=== PATIENT | female | born 2000 | race Caucasian/White ===

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

== ENCOUNTER 2020-04-01 18:55 | Emergency (ER) | payer BC, OTHER ==
[~2020-04-01] VITALS: Ht 167.6 cm; Wt 60.0 kg
[2020-04-01 19:15] VITALS: BP 162/79
--- NOTE | 2020-04-01 19:26 | PHYS DOC ---
Past History Past Medical History: Depression Past Surgical History: No Surgical History Smoking: Cigarettes Alcohol Use: None Drug Use: Marijuana Adult General Chief Complaint Chief Complaint: COUGH HPI HPI Patient is an otherwise healthy 19-year-old female who presents with a chief complaint of mild dry cough and chills for the last 5 days. States she came in to be tested for Covid. Denies any recent travel, measured fevers, chest pain, shortness of breath, abdominal pain, nausea, vomiting, diarrhea. States she is otherwise eating and drinking normally. States he is making urine and stool normally for her. Denies any known ill contacts. Review of Systems Review of Systems Review of systems otherwise unremarkable except noted in HPI Physical Exam Physical Exam Constitutional: Well developed, well nourished, no acute distress, non-toxic appearance. [] HENT: Normocephalic, atraumatic, oropharynx moist, no oral exudates, nose normal. [] Eyes: conjunctiva normal, no discharge. [] Neck: Normal range of motion, no tenderness, supple, no stridor. [] Cardiovascular:Heart rate regular rhythm, no murmur [] Lungs & Thorax: Bilateral breath sounds clear to auscultation [] Abdomen: soft, no tenderness, no masses, no pulsatile masses. [] Skin: Warm, dry, no erythema, no rash. [] Back: No tenderness Extremities: No tenderness, no cyanosis, no clubbing, ROM intact, no edema. [] Neurologic: Alert and oriented X 3, normal motor function, normal sensory function, no focal deficits noted. [] Psychologic: Affect normal, judgement normal, mood normal. [] Current Patient Data Vital Signs Vital Signs Date Time Temp Pulse Resp B/P (MAP) Pulse Ox O2 Delivery O2 Flow Rate FiO2 04/01/20 19:15 98.0 90 16 162/79 (106) 98 Room Air EKG EKG [] Radiology/Procedures Radiology/Procedures [] Heart Score Risk Factors: Risk Factors: DM, Current or recent (<one month) smoker, HTN, HLP, family history of CAD, obesity. Risk Scores: Risk Factors: DM, Current or recent (<one month) smoker, HTN, HLP, family history of CAD, obesity. Course & Med Decision Making Course & Med Decision Making Patient is a 19-year-old female who presents with concern for Covid, and wanted to be tested for 5 days of mild dry cough and chills. Vital signs notable for hypertension. Physical exam noted above. Patient swab for Covid. Discussed all findings with patient and advised quarantine over the next few days until her Covid test results. Given close contact quarantine advice as well and education. Advised to follow-up with her primary care physician first thing tomorrow to update on ED visit and quarantine. Advised to come back to the ED with new or concerning symptoms. Patient grateful, verbalized understanding and agreed with plan of discharge. [] Dragon Disclaimer Dragon Disclaimer This electronic medical record was generated, in whole or in part, using a voice recognition dictation system. Departure Departure: Impression: Primary Impression: Cough Additional Impression: Person under investigation for COVID-19 Disposition: 01 DC HOME SELF CARE/HOMELESS Condition: GOOD Referrals: MELANIE WOOD (PCP) Additional Instructions: You have been tested for COVID-19. It is an infection caused by a new type of coronavirus. COVID-19 will cause cold-like or mild flu symptoms in most. It can cause more severe symptoms like problems breathing in some. There is no treatment for COVID-19. The body will clear the infection over time. Self-care will help to ease discomfort. Steps to Take: Self-Care Rest as needed. Healthy habits may help you feel better. Steps include: Choose healthy foods including fruits and vegetables. Drink water throughout the day. Get plenty of sleep each night. If you smoke, try to quit. It may ease breathing. Avoid alcohol. Keep Others Healthy The virus can spread to others. Droplets are released every time you sneeze or cough. The droplets can get into the mouth, nose, or eyes of people near you and lead to infection. To lower the chances of spreading COVID-19 to others: Stay at home until your doctor has said it is safe to leave. If you tested positive this will mean staying isolated until both of the following are true: At least 7 days have passed since the start of illness. You are free of fever for at least 72 hours without the use of medicine. During this time: - Avoid public areas, events, or transportation. Do not return to work or school until your doctor has said it is safe to do so. - Call ahead if you need to go to a medical center. Let them know you may have COVID-19. It will help them guide you where to go. They may also ask you to wear a facemask when you come to the office. - If you call for emergency medical services, let them know you may have COVID- 19. While at home: - Try to avoid close contact with others. Stay about 6 feet away. - If possible, spend most of your time in a separate room from others. - Use a face mask if you will be in close contact with others such as sharing a room or vehicle. - Have someone wipe down common surfaces in the home. Use household store product demonstrator every day on areas like doorknobs, counters, or sinks. - Cough or sneeze into a tissue. Throw the tissue away right after use. If a tissue is not available, cough or sneeze into your elbow. - Wash your hands often. Wash them after sneezing or coughing. Use soap and water and wash for at least 20 seconds. Alcohol based hand bladder cleaner can be used if soap and water is not available. - Do not prepare food for others. Avoid sharing personal items like forks, spoons, or toothbrushes. - Avoid close contact with pets while you are sick. There is no evidence of the virus passing to pets. This is a safety step until more is known about this virus. Isolation can be frustrating. Social interaction can help. Keep in touch with friends and family through phone and tech options. You can still interact with others in your home, just keep a safe distance of about 6 feet. Follow-up: Your doctors office will check in with you to see if there are any changes in your health. You may be asked to keep track of symptoms to share with them. They will also let you know when you are clear to be in public again. Problems to Look Out For: Contact your doctor if your recovery is not going as you expect. Get emergency care if you have problems such as: - Trouble breathing - Nonstop chest pain or pressure - Changes in awareness, confusion, or problems waking - Lips or face have bluish color - Worsening of symptoms If you think you have an emergency, call for emergency medical services right away. As taken from [facility] Health Problem Qualifiers AMITA WILEY MD Apr 01, 2020 19:26
== END 2020-04-01 19:38 | disposition home or self-care (01) ==
LOC: ER 18:55
DX: R05 Cough (principal); Z20.822 Contact with and (suspected) exposure to COVID-19; R68.83 Chills (without fever); F32.9 Major depressive disorder, single episode, unspecified; F17.210 Nicotine dependence, cigarettes, uncomplicated; F12.90 Cannabis use, unspecified, uncomplicated
CPT/HCPCS: 99283; C9803; U0003

== ENCOUNTER 2021-04-23 12:11 | Emergency (ER) | payer SELFPAY ==
[~2021-04-23] VITALS: Ht 170.2 cm; Wt 64.0 kg
--- NOTE | 2021-04-23 12:40 | PHYS DOC ---
Past History Past Medical History: Depression Past Surgical History: No Surgical History Smoking: Cigarettes Alcohol Use: None Drug Use: Marijuana General Adult HPI: HPI: Patient is a female (transitioning to male) with 4 days of subjective fever, nonproductive cough, right flank and rib pain. Patient is also noted that urine has been darker to her oranges brown in color. No known sick contacts. Has not had his Covid or flu vaccines. Review of Systems: Review of Systems: All other systems within normal limits except for as noted in the HPI Physical Exam: PE: Constitutional: Well developed, well nourished, no acute distress, non-toxic appearance. [] HENT: Normocephalic, atraumatic, bilateral external ears normal, nose normal. [] Eyes: PERRLA, conjunctiva normal, no discharge. [] Neck: No rigidity, supple, no stridor. [] Cardiovascular: Regular rate and rhythm, brisk cap refill [] Lungs & Thorax: Non labored symmetric respirations, no tachypnea or respiratory distress [] Abdomen: Soft, nondistended, right upper quadrant tenderness and right flank tenderness. Skin: Warm, dry, no erythema, no rash. [] Back: Unremarkable, right CVA tenderness Extremities: No deformities, range of motion grossly intact, no lower extremity edema [] Neurologic: Alert and oriented X 3, no focal deficits noted. [] Psychologic: Affect normal, judgement normal, mood normal. [] EKG: EKG: [] Radiology/Procedures: Radiology/Procedures: [place] [address] IMAGING REPORT Signed PATIENT: OSVALDO BASILIO ACCOUNT: [id number] : 2000 LOCATION: ER AGE: 20 SEX: F EXAM STATUS: REG ER ORD. PHYSICIAN: CECILE DOE MD REASON: right flank pain CONTRAST ORDERED PROCEDURE: CT ABD PELV W/ IV CONTRST ONLY Exam Date: 04/23/2021 1:[address] ABDOMEN+PELVIS W Indication: Reason: right flank pain CONTRAST ORDERED / Spl. Instructions: / History: . TECHNIQUE: CT examination of the abdomen and pelvis was performed following the administration of nonionic intravenous contrast. One or more of the following dose reduction techniques were utilized: *Automated exposure control (AEC) *Adjustment of mA and/or kV according to patient size *Use of iterative reconstruction technique *CT scan done according to ALARA, or ALARA/IMAGE GENTLY FINDINGS: The visualized lung bases are clear. There are multiple round ill-defined areas of decreased attenuation in the right kidney suspicious for pyelonephritis. No organized abscess/collection is seen at this time. There is mural enhancement involving the right collecting system, further supporting a diagnosis of pyelonephritis/urinary tract infection. The liver, gallbladder, spleen, pancreas, adrenal glands and left kidney are normal. Streak artifact from pelvic hardware limits evaluation of the pelvis. Suboptimally visualized urinary bladder is without appreciable focal abnormality. There is no bowel obstruction or inflammation. The appendix is normal. No significant atherosclerotic calcifications are seen. No lymphadenopathy or ascites is seen. Degenerative and postoperative changes are seen in the spine. IMPRESSION: Multiple ill-defined areas of hypodensity in the right kidney are suspicious for pyelonephritis. Renal infarcts are also in the differential, but considered less likely. Mural enhancement involving the right collecting system further supports a diagnosis of pyelonephritis/urinary tract infection. No organized abscess/collection is seen at this time. Electronically signed by: Nneka Dave MD (04/23/2021 1:30 PM) [facility] DICTATED AND SIGNED BY: NNEKA DAVE MD DATE: 04/23/21 1314 CC: CECILE DOE MD; MELANIE WOOD ~MTH0 0 [] Heart Score: C/O Chest Pain: No Risk Factors: Risk Factors: DM, Current or recent (<one month) smoker, HTN, HLP, family history of CAD, obesity. Risk Scores: Score 0 - 3: 2.5% MACE over next 6 weeks - Discharge Home Score 4 - 6: 20.3% MACE over next 6 weeks - Admit for Clinical Observation Score 7 - 10: 72.7% MACE over next 6 weeks - Early Invasive Strategies Course & Med Decision Making: Course & Med Decision Making Pertinent Labs and Imaging studies reviewed. (See chart for details) [] Dragon Disclaimer: Dragon Disclaimer: This electronic medical record was generated, in whole or in part, using a voice recognition dictation system. Departure Departure: Impression: Primary Impression: Pyelonephritis Disposition: HOME / SELF CARE / HOMELESS Condition: STABLE Referrals: MELANIE WOOD (PCP) Scripts Cephalexin (CEPHALEXIN) 500 Mg Tablet 2 TAB PO BID for antibiotic for 14 Days, #56 TAB Prov: CECILE DOE MD 04/23/21 Phenazopyridine Hcl (PYRIDIUM) 200 Mg Tablet 1 TAB PO TID for urinary discomfort for 2 Days, #6 TAB 0 Refills Prov: CECILE DOE MD 04/23/21 CECILE DOE MD Apr 23, 2021 12:40
[2021-04-23] MEDS ORDERED: IOHEXOL 300 MG/ML 75 ML VIAL. IV ONE (13:00)
[2021-04-23] MEDS ORDERED: CONTRAST GIVEN. MC PRN (13:00)
[2021-04-23 13:14] LABS: BACTERIA,URINE FEW /HPF (0-FEW); CLARITY,URINE TURBID; COLOR,URINE YELLOW; GLUCOSE,URINE NEG (NEG); NITRITE,URINE NEG (NEG); SQUAMOUS EPITHELIAL CELL,UR FEW /LPF; UROBILINOGEN,URINE 0.2 mg/dL (0.2 mg/dL); WBC,URINE TNTC /HPF (0-4)
[2021-04-23 13:21] LABS: BASO % 0 % (0-3); EOS % 0 % (0-3); HEMATOCRIT 40.6 % (36.0-47.0); HEMOGLOBIN 14.2 g/dL (12.0-15.5); LYMPH # 0.5 x10^3/uL (1.0-4.8); LYMPH % 6 % (24-48); MEAN CORPUSCULAR HEMOGLOBIN 32 pg (25-35); MEAN CORPUSCULAR HGB CONC 35 g/dL (31-37); MEAN CORPUSCULAR VOLUME 92 fL (79-100); MONO # 1.3 x10^3/uL (0.0-1.1); MONO % 14 % (0-9); NEUT # 7.3 x10^3uL (1.8-7.7); NEUT % 80 % (31-73); PLATELET COUNT 152 x10^3/uL (140-400); RED BLOOD COUNT 4.43 x10^6/uL (3.50-5.40); RED CELL DISTRIBUTION WIDTH 13.9 % (11.5-14.5); WHITE BLOOD COUNT 9.2 x10^3/uL (4.0-11.0)
[2021-04-23 13:26] LABS: CALCIUM 8.9 mg/dL (8.5-10.1); CREATININE 0.9 mg/dL (0.6-1.0); GFR 78.3; POTASSIUM 3.6 mmol/L (3.5-5.1)
[2021-04-23 13:32] LABS: ALBUMIN 3.3 g/dL (3.4-5.0); ALBUMIN/GLOBULIN RATIO 0.8 (1.0-1.7); TOTAL BILIRUBIN 1.2 mg/dL (0.2-1.0); TOTAL PROTEIN 7.7 g/dL (6.4-8.2)
--- NOTE | 2021-04-23 13:32 | RAD ---
Exam Date: 04/23/2021 1:[address] ABDOMEN+PELVIS W Indication: Reason: right flank pain CONTRAST ORDERED / Spl. Instructions: / History: . TECHNIQUE: CT examination of the abdomen and pelvis was performed following the administration of no nionic intravenous contrast. One or more of the following dose reduction techniques were utilized: *Automated exposure control (AEC) *Adjustment of mA and/or kV according to patient size *Use of iterative reconstruction technique *CT scan done according to ALARA, or ALARA/IMAGE GENTLY FINDINGS: The visualized lung bases are clear. There are multiple round ill-defined areas of decreased attenuation in the right kidney suspicious fo r pyelonephritis. No organized abscess/collection is seen at this time. There is mural enhancement involving the right collecting system, further supporting a diagnosis of pyelonephritis/urinary tract infection. The liver, gallbladder, spleen, pancreas, adrenal glands and left kidney are normal. Streak artifact from pelvic hardware limits evaluation of the pelvis. Suboptimally visualized urinar y bladder is without appreciable focal abnormality. There is no bowel obstruction or inflammation. The appendix is normal. No significant atherosclerotic calcifications are seen. No lymphadenopathy or ascites is seen. Degenerative and postoperative changes are seen in the spine. IMPRESSION: Multiple ill-defined areas of hypodensity in the right kidney are suspicious for pyelonephritis. Tevin al infarcts are also in the differential, but considered less likely. Mural enhancement involving th e right collecting system further supports a diagnosis of pyelonephritis/urinary tract infection. No organized abscess/collection is seen at this time. Electronically signed by: Hunter Dave MD (04/23/2021 1:30 PM) [facility]
[2021-04-23] MEDS ORDERED: IV NORMAL SALINE 50ML 50 ML ONE (13:44)
[2021-04-23] MEDS ORDERED: cefTRIAXone SODIUM 1 GM VIAL ONE (13:45)
[2021-04-23] MEDS ORDERED: KETOROLAC 15 MG/ML VIAL. IVP ONE (13:45)
[2021-04-23] MEDS ORDERED: PHEN-318 PO (13:46)
[2021-04-23] MEDS ORDERED: CEPH500T PO (13:46)
[2021-04-23 14:00] VITALS: BP 147/77
== END 2021-04-23 14:15 | disposition home or self-care (01) ==
LOC: ER 12:11
DX: N12 Tubulo-interstitial nephritis, not specified as acute or chronic (principal); F17.210 Nicotine dependence, cigarettes, uncomplicated
CPT/HCPCS: 36415; 74177; 80053; 81001; 81025; 85025; 87086; 96374; 96375; 99285; J0696; J1885; Q9967; 87077; 87186